=== PATIENT | male | born 2005 | race Caucasian/White ===

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

== ENCOUNTER 2025-03-12 06:26 | Emergency (ER) | payer MEDICAID, SELFPAY ==
[2025-03-12 06:29] VITALS: BP 127/58; PULSE 69; RESP 20; TEMP 36.3; O2SAT 100; BMI 19.8
[2025-03-12 06:38] VITALS: BP 127/58; PULSE 69; RESP 20; TEMP 36.3; O2SAT 100
--- NOTE | 2025-03-12 06:41 | PC.NURSE ---
pt reports upper right tooth pain x2 days Px increased tonight, pt took ibuprofen with no relief. denies fever, currently nauseas.
--- NOTE | 2025-03-12 06:57 | ED.GENADULT ---
HPI - General Adult General Chief complaint: Dental/Oral Stated complaint: Dental Pain Time Seen by Provider: 03/12/25 06:57 History of Present Illness ED Provider: Rufus KERN narrative: The patient is a 20-year-old male who presents for evaluation of left maxillary dental pain. He says he has had pain in a left upper molar for about 2 days. He says that he was seen at his regular dental office yesterday and had x-rays and that no specific finding was made and no treatment was initiated. He says that he has continued to have pain. He feels like the left side of his face is swollen. He says that he vomited 3 times this morning. He came to the emergency room. He says that cold water helps the pain but hot liquids exacerbate the pain. He has not had a fever. Related Data Previous Rx's ?Medication ?Instructions ?Recorded amoxicillin 875 mg-potassium 1 tab PO TID 7 days #21 tabs 06/28/23 clavulanate 125 mg tablet ibuprofen 400 mg tablet 400 mg PO TID PRN fever or pain 09/14/23 #20 tabs acetaminophen 500 mg capsule 1,000 mg (2 x 500 mg) PO Q8H PRN 03/12/25 fever or pain #14 caps amoxicillin 875 mg-potassium 1 tab PO BID #16 tabs 03/12/25 clavulanate 125 mg tablet ibuprofen 400 mg tablet 400 mg PO Q6H PRN pain #14 tabs 03/12/25 Allergies Allergy/AdvReac Type Severity Reaction Status Date / Time No Known Allergies Allergy Verified 03/12/25 06:30 Review of Systems Review of Systems: Yes all other systems are reviewed and are negative [facility] Social History Social History Smoked in Last 30 Days: No Use of substances other than those prescribed or required for medical reasons: No Advance Directives: No Advance Directives Information Provided: Yes Physical Exam ED Vital Signs: Vital Signs - 24 hr 03/12/25 06:29 03/12/25 06:38 03/12/25 07:36 Temperature 97.4 F 97.4 F 97.8 F Pulse Rate 69 69 69 Respiratory Rate 20 20 16 Blood Pressure 127/58 L 127/58 L 108/43 L Pulse Oximetry 100 100 100 Oxygen Delivery Method Room Air Room Air Room Air BMI result Body Mass Index 19.8 Const Other: The patient is awake and alert. He is a slim 20-year-old man who looks as though he is ordinarily in good health. He looks tired. He does not seem toxic or in distress otherwise. No obvious facial swelling. Orientation/consciousness: patient oriented x3 HENMT Other: No obvious facial swelling or asymmetry. There was no trismus. On examination he indicates that the tooth that is bothering him is tooth #14. The tooth is tender to tapping. There was no gingival swelling but there is some mild slight hyperemia to the mucosa of the roof of the vestibule just at the level of the tooth. The oral cavity is otherwise unremarkable and normal looking. Mucous membranes are normal and moist. Airway is clear. Eyes Other: Pupils are round equal, conjunctivae are clear, extraocular movements intact General: appearance normal, both eyes and all related structures Neck Other: I do not appreciate any cervical adenopathy. Specifically no left upper cervical adenopathy. The neck is supple and benign. Resp Effort & Inspection: normal respiratory effort Auscultation: clear to auscultation bilaterally Cardio Rate: regular rate Rhythm: regular rhythm Heart sounds: S1 normal heart sound present and S2 normal heart sound present Skin Other: The skin of the face is normal. I do not appreciate any redness or soft tissue swelling. Neuro General: patient oriented x3, moves all extremities, no focal motor deficits and CN's II-XI intact bilaterally Extrem Other: There is no calf swelling or tenderness. No asymmetry. No peripheral edema. Medications Administered Discontinued Medications Generic Name Dose Route Start Last Admin Trade Name Freq PRN Reason Stop Dose Admin Amoxicillin/Clavulanate Potassium 875 mg 03/12/25 07:06 03/12/25 07:31 Amoxicillin/Potassium Clav 875 Mg Tablet PO 03/12/25 07:07 875 mg ONCE ONE Administration Ketorolac Tromethamine 30 mg 03/12/25 07:06 03/12/25 07:23 Ketorolac Tromethamine 30 Mg/Ml Vial IM 03/12/25 07:07 30 mg ONCE ONE Administration Medical Decision Making Medical Decision Making [facility] Narrative: The patient seems to have fairly focal dental pain at a left maxillary molar, I think this is tooth 14. It is tender to tapping. There was no indication for any drainage procedure. I will start the patient on Augmentin. Lab Data Labs: Lab Results 03/12/25 Range/Units 06:50 COVID-19 (HOLLI) Negative (Negative) COVID-19 Clin Com See Note Influenza Type A (CYNTHIA) Negative (Negative) Influenza Type B (CYNTHIA) Negative (Negative) Influenza A & B Note See Note Discharge Plan Discharge Clinical Impression: Pain, dental Patient Disposition: Home, Self-Care Instructions: Toothache (ED) Additional Instructions: You has been started on a course of antibiotics which I hope will help with the your dental pain. Please plan on checking in with your dentist again and a couple of days. Continue to use ibuprofen and acetaminophen as needed for pain. I have sent prescriptions for these medications. Return to the emergency room if significantly worse. Prescriptions: New ibuprofen 400 mg tablet 400 mg PO Q6H PRN (Reason: pain) Qty: 14 0RF acetaminophen 500 mg capsule 1,000 mg PO Q8H PRN (Reason: fever or pain) Qty: 14 0RF amoxicillin-pot clavulanate 875-125 mg tablet 1 tab PO BID Qty: 16 0RF No Action ibuprofen 400 mg tablet 400 mg PO TID PRN (Reason: fever or pain) Qty: 20 0RF amoxicillin-pot clavulanate 875-125 mg tablet 1 tab PO TID 7 Days Qty: 21 0RF Discharge Date/Time: 03/12/25 07:37 Print Language: Bulgarian
[2025-03-12 07:21] LABS: COVID-19 Test Negative (Negative); IDNOW Serial# 58CA691E
[2025-03-12 07:22] LABS: IDNOW Serial# 55D5AD1C; Influenza B2 Negative (Negative)
[2025-03-12 07:36] VITALS: BP 108/43; PULSE 69; RESP 16; TEMP 36.6; O2SAT 100
== END 2025-03-12 07:37 | disposition home or self-care (01) ==
PROVIDERS: Emergency Provider Emergency Medicine
DX: K08.89 Other specified disorders of teeth and supporting structures (principal); R11.10 Vomiting, unspecified; Z03.818 Encounter for observation for suspected exposure to other biological agents ruled out
CPT/HCPCS: 87502; 87635; 96372; 99284; J1885

== ENCOUNTER 2025-03-12 12:50 | Emergency (ER) | payer MEDICAID, SELFPAY ==
--- NOTE | ~2025-03-12 | US_ITS ---
EXAMINATION: US ABDOMEN LIMITED CLINICAL INFORMATION: Elevated liver enzymes. COMPARISON: None available. TECHNIQUE: Real-time imaging of the right upper quadrant abdominal viscera. FINDINGS: PANCREAS: Visualized portions are unremarkable. Portions of the tail were not well demonstrated. LIVER: The liver is normal in size. The liver contour is normal. Parenchymal echogenicity is normal. No focal hepatic lesion. There is no intrahepatic biliary duct dilatation seen. The main portal vein is patent with a normal direction of flow. There is a continuous venous waveform. GALLBLADDER: The gallbladder is physiologically distended without evidence of stones, sludge, polyps, wall thickening or pericholecystic fluid. COMMON BILE DUCT: Normal in caliber measuring 0.3 cm in diameter. FREE FLUID: None. US/US abdomen limited IMPRESSION: Unremarkable right upper quadrant abdomen ultrasound. Electronically signed by: Jacek Zuleta MD 03/12/2025 05:21 PM [facility]
[2025-03-12 13:14] VITALS: BP 128/61; PULSE 75; RESP 18; TEMP 36.8; O2SAT 100; BMI 21.4
--- NOTE | 2025-03-12 13:26 | ED_ITS ---
HPI - General Adult General Chief complaint: Nausea/Vomiting/Diarrhea Stated complaint: seen earlier, vomiting , toothache Time Seen by Provider: 03/12/25 14:29 Source: patient Mode of arrival: ambulatory Limitations: no limitations History of Present Illness ED Provider: Po Mccabe HPI narrative: 20 yold male presents to the ED For recently seen here for dental pain presents to ED for vomiting and dental pain. Patient denies any swelling of the neck, drooling, change in voice, or any recent trauma. Patient denies any recent dental work. Patient did not yet take the antibiotic prescribed for dental pain.. Related Data Previous Rx's ?Medication ?Instructions ?Recorded amoxicillin 875 mg-potassium 1 tab PO TID 7 days #21 t abs 06/28/23 clavulanate 125 mg tablet ibuprofen 400 mg tablet 400 mg PO TID PRN fever or p ain 09/14/23 #20 tabs acetaminophen 500 mg capsule 1,000 mg (2 x 500 mg) PO Q8H PRN 03/12/25 fever or pain #14 caps amoxicillin 875 mg-potassium 1 tab PO BID #16 tabs clavulanate 125 mg tablet ibuprofen 400 mg tablet 400 mg PO Q6H PRN pain #14 t abs 03/12/25 oxycodone 5 mg tablet 5 mg PO Q8H PRN pain #9 tabs 03/12/25 Allergies Allergy/AdvReac Type Severity Reaction Status Date / Time No Known Allergies Allergy Verified 03/12/25 13:16 Review of Systems 2 Review of Systems: Dental pain Yes all other systems are reviewed and are negative Physical Exam ED Vital Signs: Vital Signs - 24 hr 03/12/25 13:14 03/12/25 18:16 Temperature 98.3 F 98.3 F Pulse Rate 75 84 Respiratory Rate 18 16 Blood Pressure 128/61 116/50 L Pulse Oximetry 100 99 Oxygen Delivery Method Room Air Room Air BMI result Body Mass Index 21.4 Const General: cooperative, healthy appearing, comfortable, no acute distress, well developed, alert and awake Orientation/consciousness: patient oriented x3 HENMT Head: Yes normal to inspection, Yes No palpable skull fracture present, Yes normocephalic and Yes atraumatic Ears: hearing grossly normal bilaterally, external ears normal, TM's normal bilaterally, TM normal on the right, TM normal on the left, EAC's normal, mastoids normal and no periauricular adenopathy Throat: Yes posterior oropharynx normal, Yes tonsils normal and Yes uvula midline Eyes General: appearance normal, both eyes and all related structures Neck Neck: Yes normal visual inspection, Yes full ROM, Yes no lymphadenopathy, Yes no meningeal signs, Yes trachea midline, Yes supple, No anterior neck swelling and No tender Chest Chest palpation & inspection: normal inspection of the chest and normal palpation of entire chest wall Resp Effort & Inspection: normal respiratory effort and able to speak in complete sentences Auscultation: clear to auscultation bilaterally Cardio Jugular venous distension: no JVD Heart sounds: S1 normal heart sound present and S2 normal heart sound present GI Inspection: Yes normal to inspection Palpation (GI): Soft to palpation, not firm, nontender, no guarding and not rigid General: Yes no CVA tenderness Back/Spine/Pelvis Back: no CVA tenderness and No back tenderness Skin General skin exam: no rashes or lesions noted, elasticity normal and turgor normal Neuro General: patient oriented x3, gait normal, tone normal, moves all extremities, Normal light touch and pain sensation, no meningeal signs, no focal motor deficits, CN's II-XI intact bilaterally and normal sensation to monofilament Extrem General: Yes normal to inspection, Yes full ROM and Yes capillary refill normal Psych Appearance: grossly normal, well kempt and not disheveled Course Course Course Narrative: RME: 20 yold male presents to the ED for vomitting with and dental pain. Patient sen here earlier in the day and prescribed antbiotics. patient states need something for the vomiting. labs ordered. Medications Administered Discontinued Medications Generic Name Dose Route Start Last Admin Trade Name Charan PRN Reason Stop Dose Admin Sodium Chloride 1,000 mls @ 999 mls/hr 03/12/25 16:13 03/12/25 18:28 Ns IV 03/12/25 17:13 Infused .Q1H1M STA Infusion Ketorolac Tromethamine 30 mg 03/12/25 15:36 03/12/25 15:52 Ketorolac Tromethamine 30 Mg/Ml Vial IM 03/12/25 15:37 30 mg ONCE ONE Administration Ondansetron HCl 4 mg 03/12/25 14:25 03/12/25 14:31 Ondansetron Odt 4 Mg Tab.Rapdis TRANSLINGU 03/12/25 14:26 4 mg ONCE ONE Administration Oxycodone HCl 5 mg 03/12/25 15:46 03/12/25 15:52 Oxycodone Hcl Immed Release 5 Mg Tablet PO 03/12/25 15:47 5 mg ONCE ONE Administration Medical Decision Making Medical Decision Making [facility] Narrative: [age] year male presents to ED for dental pain and vomiting. Patient denies any abdominal pain, chest pain or shortness of breath. Patient denies any drooling or change in voice. We will order labs and UA. Zofran p.o. challenge ordered. 4:08pm: Patient's passed p.o. challenge. Patient given Toradol and Percocet. Patient's labs show elevated liver enzymes. That is no previous labs to compare to. I want to evaluate patient's and girlfriend states patient has been taking high doses of Tylenol every 3-4 hours for the past 3 days due to dental pain. Would add Tylenol level, hepatitis panel, an ultrasound 7:49PM; repeat liver enzymes improved. Tylenol level negative. Salicylate level negative. Patient is feeling better. Lab results reviewed with Dr. Hooper who states no need to get poison control involved and patient can be discharged. History clarifies with Patient who states he onlyl took four 500 mg Tylenol with in the past 36 hours. Patient states only took three 200 Motrin pills yesterday. Unlikely patient is having acetaminophen toxicity since amount of acetaminophen ingested is probably not very great (this was clarified on further discussion with the patient), the acetaminophen level is undetectable, and transaminases are falling. Abdomen is soft benign nontender. Patient's care being copy of lab results informed to follow up with primary care provider. not supecting pertisonsillar abscess, zak angina, retropharyngeal abscess, cirrohosis, liver failure, or any other life threatening etiology. Differential Diagnosis Differential Diagnoses: The differential diagnosis associated with the presentation includes (Hepatitis, cholecystitis, Tylenol toxicity dental pain, Zak's angina) Admission/Observation Consideration of admission/observation: Escalation of care including admission/observation considered Lab Data [facility] Lab Attestation statement: I reviewed the patient's lab results. 03/12/25 13:36 03/12/25 13:36 Labs: Lab Results 03/12/25 03/12/25 03/12/25 Range/Units 13:36 17:12 19:02 WBC 11.8 H (4.8-10.8) X10*3/uL RBC 4.91 (4.60-5.80) X10*6/uL Hgb 14.9 (14.0-18.0) g/dl Hct 42.9 (42.0-52.0) % MCV 87.4 (80.0-98.0) fL MCH 30.3 (27.0-33.0) pg MCHC 34.7 (31.0-36.0) g/dl RDW 13.7 (11.0-16.0) % Plt Count 230 (160-400) X10*3/uL MPV 10.0 (9.4-12.4) fL Immature Gran % (Auto) 0.5 H (0.0-0.4) % Neut % (Auto) 74.1 H (45-73) % Lymph % (Auto) 12.4 L (20-40) % Mifflin % (Auto) 12.5 H (2-11) % Eos % (Auto) 0.2 (0-4) % Baso % (Auto) 0.3 (0-2) % Lymph # (Auto) 1.5 (1.2-4.9) X10*3/uL Mifflin # (Auto) 1.5 H (0.1-1.2) X10*3/uL Eos # (Auto) 0.0 (0.0-0.4) X10*3/uL Baso # (Auto) 0.0 (0.0-0.2) X10*3/uL Abs Immat Gran (auto) 0.06 H (0.00-0.03) X10*3/uL Absolute Neuts (auto) 8.8 H (2.0-8.3) x10*3/uL Absolute Nucleated RBC 0.000 (0.0-0.012) X10*3/uL Nucleated RBC % (auto) 0.0 (0.0-0.2) /100WBC Sodium 140 (135-145) mmol/L Potassium 4.4 (3.3-5.1) mmol/L Chloride 105 (96-108) mmol/L Carbon Dioxide 26 (22-29) mmol/L Anion Gap 13 (12-20) BUN 7 L (9-16) mg/dL Creatinine 0.81 (0.5-1.4) mg/dL Estim Creat Clear Calc 130.3 Estimated GFR > 60 Random Glucose 103 (60-115) mg/dL Calcium 9.9 (8.4-10.2) mg/dL Magnesium 2.1 (1.6-2.6) mg/dL Total Bilirubin 0.7 0.7 (0.0-1.0) mg/dL Direct Bilirubin 0.2 (0.0-0.5) mg/dL AST 239 H 222 H (5-37) U/L ALT 313 H 294 H (0-40) U/L Alkaline Phosphatase 75 75 (39-117) U/L Total Protein 8.1 H 7.5 (6.5-8.0) g/dL Albumin 5.1 H 4.8 (3.5-5.0) g/dL Urine Color Yellow Urine Appearance Clear Urine pH 6.5 (5.0-9.0) Ur Specific Petal 1.015 (1.005-1.025) Urine Protein 30 (1+) H (Neg-Trace) mg/dL Urine Glucose (UA) Negative (Negative) mg/dL Urine Ketones 80 (Negative) mg/dL Urine Blood Negative (Negative) Urine Nitrite Negative (Negative) Ur Leukocyte Esterase Trace H (Negative) Urine RBC 0-2 (0-2) /HPF Urine WBC 0-5 (0-5) /HPF Ur Squamous Epith Cells 0-2 (0-2) /HPF Urine Bacteria None Seen (None Seen) Hyaline Casts 0-2 (0-2) /LPF Salicylates < 5.0 L (15-30) mg/dL Urine Opiates Screen Not Detected (Not Detect) Ur Buprenorphine Scrn Not Detected (Not Detect) ng/mL Ur Oxycodone Screen Not Detected (Not Detect) ng/mL Urine Methadone Screen Not Detected (Not Detect) ng/mL Urine Fentanyl Screen Not Detected (Not Detect) Acetaminophen < 3 (<30) mcg/mL Ur Barbiturates Screen Not Detected (Not Detect) Ur Phencyclidine Scrn Not Detected (Not Detect) Ur Amphetamines Screen Not Detected (Not Detect) U Benzodiazepines Scrn Not Detected (Not Detect) Urine Cocaine Screen Not Detected (Not Detect) U Marijuana (THC) Screen POSITIVE H (Not Detect) Ethyl Alcohol < 10 mg/dL Hepatitis A IgM Ab Nonreactive (Nonreactive) Hep Bs Antigen Negative (Negative) Hep Bs Antibody GRAYZONE (Nonreactive) Hep B Core Total Ab Nonreactive (Nonreactive) Hepatitis C Ab (EIA) Nonreactive (Nonreactive) Independent Historian Clinical information obtained from an independent historian. History obtained from or confirmed by: Other (patient) Discharge Plan Discharge Clinical Impression: Pain, dental, Elevated liver enzymes Patient Disposition: Home, Self-Care Instructions: Toothache (ED), Transaminitis (ED) Additional Instructions: Recommend follow up with primary care provider and dental clinic. Your liver enzymes were elevated. Ultrasound came back negative for gallstones. Blood work came back negative for Tylenol poisoning. If hepatitis panel was positive you will be called back with results. Return to the ED immediately for any swelling of the jaw/neck, drooling, change in voice, chest pain, shortness of breath, worsening dental pain, abdominal swelling, leg swelling, rash, altered mental status, or any other concerning symptoms. Name: Pierre Barrera Age/Sex: 20/M : 2005 Unit#: [id number] Attend Dr: David Hooper MD Re03/12/25 Status: REG ER Location: [facility] isch: SPEC : [id number] MACEY: 03/12/25 STATUS: COMP REQ : [id number] RECD: 03/12/[address]: Po Mccabe COMP: 03/12/25 ENTERED: 03/12/25 [facility] DR: Physician,Unknown ORDERED: CBC Auto Diff Test Result Flag Reference WBC 11.8 H 4.8-10.8 X10*3/uL RBC 4.91 4.60-5.80 X10*6/uL HGB 14.9 14.0-18.0 g/dl HCT 42.9 42.0-52.0 % MCV 87.4 80.0-98.0 fL MCH 30.3 27.0-33.0 pg MCHC 34.7 31.0-36.0 g/dl RDW 13.7 11.0-16.0 % PLT 230 160-400 X10*3/uL MPV 10.0 9.4-12.4 fL Neut Pct Auto 74.1 H 45-73 % ImGran Pct Auto 0.5 H 0.0-0.4 % Lymp Pct Auto 12.4 L 20-40 % Mifflin Pct Auto 12.5 H 2-11 % Eos Pct Auto 0.2 0-4 % Baso Pct Auto 0.3 0-2 % NRBC Pct Auto 0.0 0.0-0.2 /100WBC ANC Neut Abs # 8.8 H 2.0-8.3 x10*3/uL ImGran Abs Auto 0.06 H 0.00-0.03 X10*3/uL Lymph Abs Auto 1.5 1.2-4.9 X10*3/uL Mifflin Abs Auto 1.5 H 0.1-1.2 X10*3/uL Eos Abs Auto 0.0 0.0-0.4 X10*3/uL Baso Abs Auto 0.0 0.0-0.2 X10*3/uL NRBC Abs Auto 0.000 0.0-0.012 X10*3/uL END OF REPORT Name: Pierre Barrera Age/Sex: 20/M : 2005 Unit#: [id number] Attend Dr: David Hooper MD Re03/12/25 Status: REG ER Location: [facility] isch: SPEC : [id number] MACEY: 03/12/25 STATUS: COMP REQ : [id number] RECD: 03/12/[address]: Po Mccabe COMP: 03/12/25 ENTERED: 03/12/[address]: Physician,Unknown ORDERED: CMP, MG Test Result Flag Reference Sodium 140 135-145 mmol/L Potassium 4.4 3.3-5.1 mmol/L CL 105 96-108 mmol/L CO2 26 22-29 mmol/L Gap 13 12-20 BUN 7 L 9-16 mg/dL Creat 0.81 0.5-1.4 mg/dL Estimated CrCl 130.3 eGFR (calculated from the MDRD study equation) and eCrCl (calculated from the Cockcroft-Gault equation) are based on different parameters and may not yield comparable results. If eCrCl result is absurd, please check patient's height/weight. eGFR > 60 Chronic Kidney Disease: Estimated GFR < 60 mL/min/1.73m2 Severe Kidney Disease: Estimated GFR < 15 mL/min/1.73m2 Glucose, Random 103 60-115 mg/dL CA 9.9 8.4-10.2 mg/dL Magnesium 2.1 1.6-2.6 mg/dL Total Bili 0.7 0.0-1.0 mg/dL AST (GOT) 239 H 5-37 U/L ALT (GPT) 313 H 0-40 U/L Protein, Total 8.1 H 6.5-8.0 g/dL Alb 5.1 H 3.5-5.0 g/dL Alk Phos 75 39-117 U/L END OF REPORT Name: Pierre Barrera Age/Sex: 20/M : 2005 Unit#: [id number] Attend Dr: David Hooper MD Re03/12/25 Status: REG ER Location: [facility] isch: SPEC : [id number] MACEY: 03/12/25 STATUS: COMP REQ : [id number] RECD: 03/12/[address]: David Hooper MD COMP: 03/12/25 ENTERED: 03/12/[address]: Physician,Unknown ORDERED: Liver Panel Test Result Flag Reference Total Bili 0.7 0.0-1.0 mg/dL Direct Bili 0.2 0.0-0.5 mg/dL AST (GOT) 222 H 5-37 U/L ALT (GPT) 294 H 0-40 U/L Protein, Total 7.5 6.5-8.0 g/dL Alb 4.8 3.5-5.0 g/dL Alk Phos 75 39-117 U/L Ordering Physician: Po Mccabe Date of Service: 03/12/25 Procedure(s): US abdomen limited Accession Number(s): [id number] cc: Po Mccabe; Physician,Unknown ~ Reason for Exam: CHolecysitis? elevated liver enzymes EXAMINATION: US ABDOMEN LIMITED CLINICAL INFORMATION: Elevated liver enzymes. COMPARISON: None available. TECHNIQUE: Real-time imaging of the right upper quadrant abdominal viscera. FINDINGS: PANCREAS: Visualized portions are unremarkable. Portions of the tail were not well demonstrated. LIVER: The liver is normal in size. The liver contour is normal. Parenchymal echogenicity is normal. No focal hepatic lesion. There is no intrahepatic biliary duct dilatation seen. The main portal vein is patent with a normal direction of flow. There is a continuous venous waveform. GALLBLADDER: The gallbladder is physiologically distended without evidence of stones, sludge, polyps, wall thickening or pericholecystic fluid. COMMON BILE DUCT: Normal in caliber measuring 0.3 cm in diameter. FREE FLUID: None. US/US abdomen limited IMPRESSION: Unremarkable right upper quadrant abdomen ultrasound. Electronically signed by: Jacek Zuleta MD 03/12/2025 05:21 PM [facility] Dictated By: Jacek Zuleta MD Signed By: <Electronically signed by Jacek Zuleta MD in OV> 03/12/25 1721 DD/ 1649 TD/TT: 03/12/25 1658 Piper Helper: [facility] [address] [place] [id number] Livestock Nutritionist: Joseph Bates M.D. Specimen Inquiry Name: Savagereza AlexPierre Y Age/Sex: 20/M : 2005 Unit#: [id number] Attend Dr: David Hooper MD Re03/12/25 Status: REG ER Location: [facility] isch: SPEC : [id number] MACEY: 03/12/25 STATUS: COMP REQ : [id number] RECD: 03/12/[address]: Po Mccabe COMP: 03/12/25 ENTERED: 03/12/[address]: Physician,Unknown ORDERED: Salic, Acetamin Test Result Flag Reference Salicylate < 5.0 L 15-30 mg/dL Acetaminophen < 3 <30 mcg/mL Prescriptions: New oxycodone 5 mg tablet 5 mg PO Q8H PRN (Reason: pain) Qty: 9 0RF Rx Instructions: Partial Fill upon patient request. No Action ibuprofen 400 mg tablet 400 mg PO TID PRN (Reason: fever or pain) Qty: 20 0RF ibuprofen 400 mg tablet 400 mg PO Q6H PRN (Reason: pain) Qty: 14 0RF acetaminophen 500 mg capsule 1,000 mg PO Q8H PRN (Reason: fever or pain) Qty: 14 0RF amoxicillin-pot clavulanate 875-125 mg tablet 1 tab PO BID Qty: 16 0RF amoxicillin-pot clavulanate 875-125 mg tablet 1 tab PO TID 7 Days Qty: 21 0RF Referrals: [facility] [Provider Group, Gastroenterology] - 2 days Referral Note: elevated liver enzymes Clinical Impression: Elevated liver enzymes [facility] [Provider Group, Internal Medicine] - 2 days Referral Note: That is to pain, transaminitis Clinical Impression: Elevated liver enzymes; Pain, dental Stand Alone Forms: Work/School Release Interventions: ED Discharge Assessment Last Done: 03/12/25 20:09 Discharge Date/Time: 03/12/25 20:10 Print Language: Sudanese
[2025-03-12 13:40] LABS: MANUAL DIFF FLAG NO
[2025-03-12 13:42] LABS: Hematocrit 42.9 % (42.0-52.0); Hemoglobin 14.9 g/dl (14.0-18.0); Imm Gran Abs Auto 0.06 X10*3/uL (0.00-0.03); Imm Gran Pct Auto 0.5 % (0.0-0.4); Lymphocytes Absolute Auto 1.5 X10*3/uL (1.2-4.9); Mean Corpuscular HGB Conc 34.7 g/dl (31.0-36.0); Mean Corpuscular Hemoglobin 30.3 pg (27.0-33.0); Mean Corpuscular Volume 87.4 fL (80.0-98.0); NRBC Abs Auto 0.000 X10*3/uL (0.0-0.012); NRBC Pct Auto 0.0 /100WBC (0.0-0.2); Platelet Count 230 X10*3/uL (160-400); Red Blood Count 4.91 X10*6/uL (4.60-5.80); White Blood Count 11.8 X10*3/uL (4.8-10.8)
[2025-03-12 13:44] LABS: Appearance Urine Clear; Glucose Urine UA Negative (Negative); PH 6.5 (5.0-9.0); Specific Gravity - Urine 1.015 (1.005-1.025); UMIC TRIGGER UACC YES
[2025-03-12 13:56] LABS: Alanine Aminotransferase 313 U/L (0-40); Albumin Level 5.1 g/dL (3.5-5.0); Alkaline Phosphatase 75 U/L (39-117); Anion Gap 13 (12-20); Aspartate Amino Transferase 239 U/L (5-37); Blood Urea Nitrogen 7 mg/dL (9-16); Calcium 9.9 mg/dL (8.4-10.2); Carbon Dioxide 26 mmol/L (22-29); Chloride 105 mmol/L (96-108); Creatinine Clr Calc Pharmacy 130.3; Estimated Glomerular Filt Rate > 60; Potassium 4.4 mmol/L (3.3-5.1); Sodium 140 mmol/L (135-145); Total Protein 8.1 g/dL (6.5-8.0)
--- NOTE | 2025-03-12 14:33 | PC.NURSE ---
Patient presenting to ED with nausea and vomiting after being discharged earlier this morning for dental pain. Patient states he has been unable to eat due to dental pain and taking pain medications and antibiotics. Zofran given.
[2025-03-12 15:21] LABS: Cannabinoid Screen Urine POSITIVE (Not Detect)
[2025-03-12] MEDS: oxyCODONE HCl Immed Release 5 MG TABLET PO (15:52)
[2025-03-12 17:38] LABS: Acetaminophen LAB < 3 mcg/mL (<30); Salicylate < 5.0 mg/dL (15-30)
[2025-03-12 18:16] VITALS: BP 116/50; PULSE 84; RESP 16; TEMP 36.8; O2SAT 99
--- NOTE | 2025-03-12 18:19 | ECG_ITS ---
Test Reason : ELEVATED LIVER ENZY Blood Pressure : */* mmHG Vent. Rate : 79 BPM Atrial Rate : 79 BPM P-R Int : 130 ms QRS Dur : 84 ms QT Int : 384 ms P-R-T Axes : 67 -23 48 degrees QTcB Int : 440 ms Normal sinus rhythm with sinus arrhythmia Normal ECG When compared with ECG of 02-Aug-2021 13:39, No significant change was found Referred By: Po Mccabe Electronically Signed By: DIAZ OVIEDO
[2025-03-12 18:40] LABS: Magnesium 2.1 mg/dL (1.6-2.6)
[2025-03-12 19:21] LABS: Alanine Aminotransferase 294 U/L (0-40); Albumin Level 4.8 g/dL (3.5-5.0); Alkaline Phosphatase 75 U/L (39-117); Aspartate Amino Transferase 222 U/L (5-37); Total Protein 7.5 g/dL (6.5-8.0)
[2025-03-12 20:09] VITALS: BP 116/50; PULSE 84; RESP 16; TEMP 36.8; O2SAT 99
[2025-03-13 08:08] LABS: HBS Num1 10.83 mIU/mL (0-7.99); HBc Num1 0.13 S/CO (0.00-0.79); HBsAGNum1 0.43 S/CO (0.00-0.99); Hepatitis A Antibody IgM 0.27 Index (0-0.79); Hepatitis B Surface Antigen Negative (Negative); ~HepC Num1 0.11 S/CO (0.00-0.79); ~Hepatitis A Antibody IgM Nonreactive (Nonreactive); ~Hepatitis C Antibody Nonreactive (Nonreactive)
[2025-03-13 10:26] LABS: HBS Num2 11.38 mIU/mL (0-7.99); HBS Num3 11.32 mIU/mL (0-7.99); ~Hepatitis B Surface Antibody GRAYZONE (Nonreactive)
== END 2025-03-12 20:10 | disposition home or self-care (01) ==
PROVIDERS: Physician Assistant; Emergency Provider Emergency Medicine
DX: K08.89 Other specified disorders of teeth and supporting structures (principal); R11.10 Vomiting, unspecified; R22.1 Localized swelling, mass and lump, neck; R74.01 Elevation of levels of liver transaminase levels
CPT/HCPCS: 36415; 76705; 80053; 80076; 80143; 80179; 80307; 81001; 83735; 85025; 86704; 86706; 86709; 86803; 87340; 93005; 96360; 96372; 99284; 99285; J1885

== ENCOUNTER → 2025-03-12 16:09 | Outpatient (BNV) | payer MEDICAID, SELFPAY | PROVIDERS: Emergency Provider Emergency Medicine; Visit Provider Radiology Diagnostic Radiology | DX: R74.01 Elevation of levels of liver transaminase levels (principal) | CPT/HCPCS: 76705 ==

== ENCOUNTER → 2025-03-12 18:19 | Outpatient (BNV) | payer MEDICAID, SELFPAY | PROVIDERS: Emergency Provider Emergency Medicine; Visit Provider Internal Medicine | DX: R94.5 Abnormal results of liver function studies (principal) | CPT/HCPCS: 93010 ==

== ENCOUNTER 2025-04-02 14:16 | Emergency (ER) | payer MEDICAID, SELFPAY ==
--- NOTE | ~2025-04-02 | XR_ITS ---
EXAMINATION: XR HAND, RIGHT CLINICAL INFORMATION: pain, injury, concern for FB COMPARISON: None available. TECHNIQUE: PA, lateral, and oblique views of the right hand. FINDINGS: No fracture, dislocation, or suspicious bone lesion. Normal bone mineralization. Normal alignment. Joint spaces are preserved. No significant arthropathy. No radiopaque foreign body is evident. Soft tissues appear normal. XR/XR hand RT min 3V IMPRESSION: No acute bony or soft tissue abnormalities of the right hand. There is no radiopaque foreign body. Electronically signed by: Alejandro Piña MD 04/02/2025 03:20 PM [facility]
[2025-04-02 14:28] VITALS: BP 114/64; PULSE 96; RESP 18; TEMP 36.6; O2SAT 100; BMI 22.4
--- NOTE | 2025-04-02 14:33 | ED_ITS ---
HPI - Wound/Laceration General Chief Complaint: Wound/Laceration Stated Complaint: Injury Time Seen by Provider: 04/02/25 17:04 History of Present Illness ED Provider: Rufus EKRN narrative: The patient is a 20-year-old male who punched a mirror with his right hand earlier today at approximately 14:00. He sustained several skin injuries to the dorsum of the hand including a laceration on the dorsum of the right thumb near the IP joint. He is not able to extend the thumb at the IP joint. He has normal sensation in all the fingers. He has no other injuries. He admits that he was feeling upset earlier but he no longer feels like he is going to do anything to harm himself or anyone else. He does not feel that he has any foreign bodies in the wounds. Related Data Previous Rx's ?Medication ?Instructions ?Recorded amoxicillin 875 mg-potassium 1 tab PO TID 7 days #21 t abs 06/28/23 clavulanate 125 mg tablet ibuprofen 400 mg tablet 400 mg PO TID PRN fever or p ain 09/14/23 #20 tabs acetaminophen 500 mg capsule 1,000 mg (2 x 500 mg) PO Q8H PRN 03/12/25 fever or pain #14 caps amoxicillin 875 mg-potassium 1 tab PO BID #16 tabs clavulanate 125 mg tablet ibuprofen 400 mg tablet 400 mg PO Q6H PRN pain #14 t abs 03/12/25 oxycodone 5 mg tablet 5 mg PO Q8H PRN pain #9 tabs 03/12/25 acetaminophen 500 mg capsule 1,000 mg (2 x 500 mg) PO Q8H PRN 04/02/25 fever or pain #14 caps cephalexin 500 mg capsule 500 mg PO QID 5 days #20 cap s 04/02/25 Allergies Allergy/AdvReac Type Severity Reaction Status Date / Time No Known Allergies Allergy Verified 04/02/25 14:30 Review of Systems Review of Systems: Yes all other systems are reviewed and are negative PMFSH Social History Social History Advance Directives: No Advance Directives Information Provided: No Physical Exam Vital Signs: Vital Signs: Last Vital Signs Temp 97.9 F 04/02/25 19:02 Pulse 96 04/02/25 19:02 Resp 18 04/02/25 19:02 BP 114/64 04/02/25 19:02 Pulse Ox 100 04/02/25 19:02 O2 Del Method Room Air 04/02/25 14:28 BMI result Body Mass Index 22.4 Const: Other: The patient has the appearance of an ordinarily healthy 20-year-old male with wounds to the dorsum of the right hand including a laceration to the dorsum of the right thumb at the IP joint. The thumb is flexed at the IP joint and he is obviously unable to extend the thumb. Orientation/consciousness: patient oriented x3 HEENT: Other: The face is symmetrical. ?Mucous membranes moist. Eyes: Other: Pupils are round equal, conjunctivae are clear, extraocular movements [id number] Neck: Neck: Yes normal visual inspection and Yes full ROM Resp: Effort & Inspection: normal respiratory effort Skin: Other: The patient has a 2 cm laceration across the dorsum of the right thumb at the IP joint. He has a 1.5 cm laceration across the dorsum of the PIP joint of the right middle finger. He has a 1 cm laceration on the dorsum of the right middle finger just distal to the PIP. He has a scattering of additional smaller skin abrasions to the dorsum of the hand and fingers as well. Neuro: Other: The patient has intact sensation in the fingertips of the right hand. He is unable to extend the thumb at the IP joint where there is a laceration. He is otherwise neurologically intact. General: patient oriented x3, tone normal, moves all extremities, no focal motor deficits and CN's II-XI intact bilaterally Extrem: Other: The patient has multiple skin injuries to the dorsum of the right hand. The largest of these is overlying the IP joint of the thumb. The thumb is being held flexed. The patient is unable to extend the thumb and this is suggestive of a laceration of the extensor tendon mechanism of the thumb. The patient has 2 lacerations on the dorsum of the middle finger, the larger of these to his over the PIP joint. The 2nd laceration is just distal to the 1st laceration. The larger laceration is 1.5 cm, the 2nd laceration is 1 cm. The patient has normal extensor function of the middle finger. The patient has multiple smaller skin wounds to other portions of the dorsum of the hand. These are all abrasions. Course Course Course Narrative: This is an RME: Additional HPI, ROS, PE not included below will be deferred to primary provider. RME assessment and note performed by: Little Gary PA-C This is a 67-male who presents to the [facility] concerns of laceration to his right thumb. Punched mirror and lacerated his right thumb, unable to move thumb. Plan: Xrays, wound repair Orthopedic team consulted, recommended washing out well, loosely approximating the wound edges, splinting, and following up with them on an outpatient basis. Medications Administered Discontinued Medications Generic Name Dose Route Start Last Admin Trade Name Freq PRN Reason Stop Dose Admin Bacitracin 2 appl 04/02/25 17:46 04/02/25 18:11 Bacitracin Oint 0.9 Gm Packet TOPICAL 04/02/25 17:47 2 appl ONCE ONE Administration Protocol Cephalexin HCl 1,000 mg 04/02/25 17:13 04/02/25 18:12 Cephalexin 500 Mg Capsule PO 04/02/25 17:14 1,000 mg ONCE ONE Administration Diphtheria/Tetanus/Acell Pertussis 0.5 ml 04/02/25 18:50 04/02/25 18:55 Diphth,Pertus(Acell),Tet Adult 0.5 Ml Syringe IM 04/02/25 18:51 0.5 ml .ONCE ONE Administration Lidocaine HCl 10 ml 04/02/25 17:12 04/02/25 18:20 Lidocaine Hcl 1 % Mpf 5 Ml Vial INFILTRATI 04/02/25 17:13 10 ml ONCE ONE Administration Medical Decision Making Medical Decision Making [facility] Narrative: The patient is a 20-year-old male who punched a mere and injured his hand. His most significant injury is a laceration to the right thumb. The laceration is over the IP joint and the patient seems to have no ability to extend the distal phalanx of the thumb at the IP joint. Clinically he has a complete disruption of the extensor tendon mechanism. He has 2 lacerations on the dorsum of the middle finger but has no signs of a tendon injury. He has sensation intact throughout. Orthopedics has been contacted by the physician web assistant at triage and discussion of the extensor tendon injury of the thumb occurred. Recommendation from orthopedics was to close the skin and discharge the patient to follow up with the Orthopedics tomorrow morning. When I saw the patient he had already received a message from the orthopedic office for a 09:45 appointment tomorrow. I then proceeded to close the wounds using standard wound closure technique including copious irrigation. The thumb wound was closed with 3 simple interru pted stitches and the 2 wounds on the dorsum of the middle finger were closed with 2 stitches and 1 stitch respectively. The thumb wound was splinted with the finger in extension. The patient was updated on tetanus. The patient was placed on cephalexin prophylactically. The patient was advised to keep the hand elevated. He should keep this dressing intact until following up tomorrow morning with the orthopedic office as currently scheduled. Procedures Laceration Laceration 1: Site: hand (Dorsum of right thumb over IP joint) Side (If applicable): right Size (cm): 2.5 Description: linear Depth: involves tendon Local Anesthetic: lidocaine 1% Amount of anesthesia used (mL): 4 Pre-repair: wound explored and irrigated extensively Skin layer closed with: nylon Size (cm): 4-0 Number of sutures: 3 Technique: simple, interrupted Laceration 2: Site: hand (Dorsum of right hand over PIP joint) Side (If applicable): right Size (cm): 1.5 Description: linear Depth: simple, single layer Local Anesthetic: lidocaine 1% Amount of anesthesia used (mL): 3 Pre-repair: wound explored and irrigated extensively Skin layer closed with: nylon Size (cm): 5-0 Number of sutures: 2 Technique: simple, interrupted Laceration 3: Site: hand (Dorsum of right hand just distal to fold of IP joint) Side (If applicable): right Size (cm): 1 Description: linear Depth: simple, single layer Local Anesthetic: lidocaine 1% Amount of anesthesia used (mL): 1 Pre-repair: wound explored and irrigated extensively Skin layer closed with: nylon Size (cm): 5-0 Number of sutures: 1 Technique: simple, interrupted Discharge Plan Discharge Clinical Impression: Laceration of extensor tendon of right thumb at hand level, Laceration of right thumb, Laceration of right middle finger Patient Disposition: Home, Self-Care Instructions: Laceration (ED) Additional Instructions: Keep your hand elevated tonight. Keep the dressing intact. Please keep the appointment with the orthopedic office tomorrow. You have a cut not only 3 your skin but also through the tendon that let us you straighten your right thumb. This will need to be surgically repaired. Therefore you must keep this appointment tomorrow. I have sent a prescription for antibiotics to the [facility] pharmacy. Please take this about every 6 hours. There is also a prescription for acetaminophen (Tylenol) that you may use as needed for pain. The stitches in your middle finger should come out in about 10 days. The dressing may be changed 1 to 2 times a day. Return to the emergency room at any time if any significant complications arise. Prescriptions: New cephalexin 500 mg capsule 500 mg PO QID 5 Days Qty: 20 0RF acetaminophen 500 mg capsule 1,000 mg PO Q8H PRN (Reason: fever or pain) Qty: 14 0RF No Action ibuprofen 400 mg tablet 400 mg PO TID PRN (Reason: fever or pain) Qty: 20 0RF ibuprofen 400 mg tablet 400 mg PO Q6H PRN (Reason: pain) Qty: 14 0RF acetaminophen 500 mg capsule 1,000 mg PO Q8H PRN (Reason: fever or pain) Qty: 14 0RF amoxicillin-pot clavulanate 875-125 mg tablet 1 tab PO BID Qty: 16 0RF oxycodone 5 mg tablet 5 mg PO Q8H PRN (Reason: pain) Qty: 9 0RF Rx Instructions: Partial Fill upon patient request. amoxicillin-pot clavulanate 875-125 mg tablet 1 tab PO TID 7 Days Qty: 21 0RF Referrals: [facility] [facility] [Provider Group] Interventions: ED Discharge Assessment Last Done: 04/02/25 19:02 Discharge Date/Time: 04/02/25 19:02 Print Language: Irish
--- NOTE | 2025-04-02 17:31 | PC.NURSE ---
Patient presented to ED from home with laceration right thumb due to punching mirror. Provider at bedside suturing lac.
[2025-04-02] MEDS: Lidocaine HCl 1 % MPF 5 ML VIAL 10 ML INFILTRATI (18:20)
[2025-04-02] MEDS: Diphth,Pertus(ACell),Tet Adult 0.5 ML SYRINGE IM (18:55)
[2025-04-02 19:02] VITALS: BP 114/64; PULSE 96; RESP 18; TEMP 36.6; O2SAT 100
== END 2025-04-02 19:02 | disposition home or self-care (01) ==
PROVIDERS: Emergency Provider Emergency Medicine
DX: S66.221A Laceration of extensor muscle, fascia and tendon of right thumb at wrist and hand level, initial encounter (principal); S61.212A Laceration without foreign body of right middle finger without damage to nail, initial encounter; S60.511A Abrasion of right hand, initial encounter; W25.XXXA Contact with sharp glass, initial encounter; Y93.9 Activity, unspecified; Y92.9 Unspecified place or not applicable; Y99.8 Other external cause status; Z23 Encounter for immunization
CPT/HCPCS: 12002; 73130; 90471; 90715; 99282; 99284; J2003

== ENCOUNTER → 2025-04-02 14:29 | Outpatient (BNV) | payer MEDICAID, SELFPAY | PROVIDERS: Visit Provider Radiology Diagnostic Radiology | DX: M79.641 Pain in right hand (principal) | CPT/HCPCS: 73130 ==

== ENCOUNTER 2025-04-03 09:49 | Outpatient (AMB) | payer MEDICAID, SELFPAY ==
[2025-04-03 09:51] VITALS: BMI 22.3
--- NOTE | 2025-04-03 09:51 | MHC.OFFVIS ---
Vital Signs 04/03/25 09:51 Height 5 ft 6 in Weight 138 lb BMI 22.3 Intake Visit Reasons: ED FU-right thumb extensor tendon laceration Intake Note: Pierre 20 yr old right hand dominant male who works at [employer], presents today for his ED follow up visit for his right thumb extensor tendon laceration from [facility] 04/02/25. He presents to ED with concerns of laceration to his right thumb. Patient states he punched a mirror and lacerated his right thumb. States he was splinted and received sutures. Today he is limited ROM with his thumb. Denies numbness or tinglin in fingers. Accompanied by: Grand Parent Allergies No Known Allergies Allergy (Verified 04/03/25 09:57) HPI HPI ED FU-right thumb extensor tendon laceration: Details: Pierre 20 yr old right hand dominant male who works at [employer], presents today for his ED follow up visit for his right thumb extensor tendon laceration from [facility] 04/02/25. He presents to ED with concerns of laceration to his right thumb. Patient states he punched a mirror and lacerated his right thumb. Was previously seen in the ED , where he was placed into a splint and the laceration was loosely sutured after copious irrigation. Patient was also placed on antibiotics at that time. Today, the patient denies any numbness in the right thumb, but does report he is unable to actively extend the right thumb. Patient states he was told that he may have cut 1 of the tendons. No other acute complaints or concerns at this time. [facility] Social History (Updated 04/03/25 @ 09:59 by PASQUALE Sanders) Patient Tobacco Use Status: Never used Tobacco Current occupational status: employed Current occupation: [employer]. Physical Exam Vital Signs: BMI result Body Mass Index 22.3 Extrem Other: Patient is alert, oriented, and in no acute distress. Neuro: Normal sensation of the tips of all digits of the right hand at this time Vascular: Cap refill brisk Pain: Minimal tenderness to palpation about laceration on dorsal aspect of right thumb ROM: Patient is unable to actively extend the IP joint of the right thumb Patient is able to flex the IP joint of the right thumb Skin: There was an approximately 4 cm in length laceration noted over the dorsal aspect of the right thumb just proximal to the IP joint Loosely approximated with sutures General: No ecchymosis, erythema, or evidence of infection. Psych: Appears grossly normal Affect normal Attitude cooperative Assessment & Plan Assessment & Plan (1) Laceration of extensor muscle, fascia and tendon of right thumb at wrist and hand level, initial encounter: Code(s): S66.221A - Laceration of extensor muscle, fascia and tendon of right thumb at wrist and hand level, initial encounter Category: Medical Plan 1. Extensor tendon laceration of right thumb Date of injury 04/02/2025 I educated the patient about the condition. I discussed both operative and nonoperative treatment options. The patient would like to proceed with surgery. The risks and benefits of operative treatment were discussed with the patient and the patient wishes to proceed with surgery. These risks include, but are not limited to, risk of damage to blood vessels, nerves, tendons, infection, recurrence, incomplete relief of preoperative symptoms, persistent pain, possible need for further surgery, and the risks associated with regional blocks and/or anesthesia. Plan is to take the patient to the operating room at some point in the next few weeks for the following procedures: 1. Right thumb extensor tendon repair under general anesthesia All of the preoperative paperwork including the consent was discussed today. All of the patient's questions were answered in the clinic today. The patient understands that they will be in contact with our medical or surgical instrument maker to discuss scheduling their procedure. Patient denies diabetes, blood thinners, asthma, heart issues, lung issues, kidney issues, or current smoking. Medications: Discontinued amoxicillin-pot clavulanate 875-125 mg Discontinued Reason: Patient Completed Course 1 tab PO TID 7 days 21 tabs 0RF amoxicillin-pot clavulanate 875-125 mg Discontinued Reason: Patient Completed Course 1 tab PO BID 16 tabs 0RF oxycodone Partial Fill upon patient request. Discontinued Reason: Patient Completed Course 5 mg PO Q8H PRN 9 tabs 0RF pain Coding Level of Care Code New Pt Level 4 (70535) Diagnoses Laceration of extensor muscle, fascia and tendon of right thumb at wrist and hand level, initial encounter S66.221A
== END 2025-04-03 10:28 | disposition home or self-care (01) ==
LOC: HO.HOS 09:49
DX: S66.221A Laceration of extensor muscle, fascia and tendon of right thumb at wrist and hand level, initial encounter (principal)
CPT/HCPCS: 99204

== ENCOUNTER → 2025-04-03 09:49 | Outpatient (BNVA) | payer MEDICAID, SELFPAY | DX: S66.221A Laceration of extensor muscle, fascia and tendon of right thumb at wrist and hand level, initial encounter (principal); W26.8XXA Contact with other sharp object(s), not elsewhere classified, initial encounter; Y93.9 Activity, unspecified; Y92.89 Other specified places as the place of occurrence of the external cause; Y99.0 Civilian activity done for income or pay | CPT/HCPCS: 99212 ==

== ENCOUNTER 2025-04-06 11:42 | Day surgery (SDC) | payer MEDICAID, SELFPAY ==
--- NOTE | 2025-04-03 11:13 | HO.ANESPROP2 ---
Documented by User: Annemarie Arnold NP 04/03/25 11:14 HPI - Anesthesia Eval Consult details Narrative: 20 yr old male for right Thumb Extensor Tendon Repair [facility] Social History Social History Are you a primary primary care md to a significant other at home: No Do you presently have visiting nurse or other home services: No Patient Tobacco Use Status: Never used Tobacco Second Hand Smoke Exposure: No Use of substances other than those prescribed or required for medical reasons: Yes Substance Use Frequency: Daily Have you been hit, kicked, punched, or otherwise hurt by someone within the past year? If so, by whom?: No Are you DNR?: No Advance Directives: No Advance Directives Information Provided: Yes Advance Directives on File: No Current occupational status: employed Current occupation: [employer]. Meds Allergies Allergy/AdvReac Type Severity Reaction Status Date / Time No Known Allergies Allergy Verified 04/03/25 09:57 Documented by User: Bailey Hernandez MD 04/06/25 13:33 [facility] Family History Family history of problems with anesthesia: No Surgical History History of Problems with Anesthesia: No Social History Social History Are you a primary primary care md to a significant other at home: No Do you presently have visiting nurse or other home services: No Patient Tobacco Use Status: Never used Tobacco Second Hand Smoke Exposure: No Use of substances other than those prescribed or required for medical reasons: Yes Substance Use Frequency: Daily Have you been hit, kicked, punched, or otherwise hurt by someone within the past year? If so, by whom?: No Are you DNR?: No Advance Directives: No Advance Directives Information Provided: Yes Advance Directives on File: No Current occupational status: employed Current occupation: [employer]. Meds Allergies Allergy/AdvReac Type Severity Reaction Status Date / Time No Known Allergies Allergy Verified 04/03/25 09:57 Exam Airway Mallampati Class: II TM Dist: >3cm Neck ROM: Full Heart: rrr Lungs: cta Assessment and Plan Assessment Anesthesia Assessment: Anesthesia Plan Discussed and Chart Reviewed Final Anesthetic Review Family History of Problems with Anesthesia: No History of Problems with Anesthesia: No NPO: Yes ASA Class: II (heavy pot use) Final Preanesthetic Review: No Changes in Pt Med Stat, Meds/Allgs Chart Reviewed, Consent Obtained/Reviewed and Anes Risks/Benef Reviewed Patient Risk: Intermediate Procedure Risk: Low Anesthetic Plan Anesthetic Plan: GA and Agree w/ Assess. and Plan Disposition: Standard PACU
[2025-04-06] VITALS (7 sets, daily range): BP systolic 103–125; BP diastolic 57–80; PULSE 53–65; RESP 12–16; TEMP 36.5–36.9; O2SAT 97–100; BMI 20.5
[2025-04-06] MEDS: Lactated Ringers 1,000 ML 100 ML IVCONT (12:39)
--- NOTE | 2025-04-06 13:48 | PC.NURSE ---
No 24hr update documented on patient. Dr Kelley notified via [employer]. Jaci Christiansen, RESTAURANT LINE SERVER aware. patient transported via stretcher to OR without documentation done.
--- NOTE | 2025-04-06 13:50 | P.OP_ITS ---
Operative Note Operative Note Date of Service: 04/06/25 Narrative: Operative Note Narrative: Preop diagnosis: 1. Right thumb dorsal laceration with extensor tendon laceration Postop diagnosis: Same Procedure: 1. Right thumb repair of extensor pollicis longus tendon 2. I&D and closure of right thumb wound 2.5 cm Surgeon: Serina Kelley MD Employment Programs Analyst: None Anesthesia: General Anesthesia Findings: Extensor pollicis longus tendon laceration with retraction of EPL tendon to MCP joint. Scoring of the dorsal cortex of the proximal phalanx, but laceration did not appear to enter the IP joint. Implants: None Tourniquet time: 18 minutes EBL: 5.0 ml Specimen: None Drains: None Complications: None Disposition: Brought to the recovery room in stable condition Plan: Follow-up in 10-14 days for wound check, suture removal and placement in a shor t-arm thumb spica cast until 6 weeks postop Early OT following discontinuance of thumb spica cast in 6 weeks. Indications: The patient is a 20 year old young man with a right thumb dorsal laceration with laceration of the extensor tendons after punching glass . The risks and benefits of operative treatment, including but not limited to risk of damage to blood vessels, nerves, tendons, infection, recurrence, persistent pain or numbness, incomplete resolution of preoperative symptoms, or need for further surgery were discussed with the patient and they wished to proceed with surgery. Procedure: Once consent was obtained patient was brought back to the operating suite and placed in the operating table in a supine position. . Perioperative antibiotics and anesthesia was administered by the anesthesia team. A tourniquet was applied to the proximal aspect of the right upper extremity and the limb was prepped and draped in a standard surgical fashion. The limb was elevated exsanguinated with Esmarch bandage and the tourniquet inflated to 250 mm of mercury for a total tourniquet time of 18 minutes. The patient had an approximately 2.5 cm oblique laceration over the dorsal aspect of the right thumb proximal phalanx just proximal to the IP joint. Sutures were removed and then I and D of the wound was performed using iris and tenotomy scissors to excise some devitalized tissue. The glass that lacerated the EPL tendon also scored the dorsal aspect of the proximal phalanx proximal to the IP joint. The IP joint does not appear to have been violated. The proximal end of the EPL tendon retracted back to the MCP joint. I extended the radial aspect of the incision proximally to just distal to the MCP joint. This was done using a 15. Blade through the skin to the subcutaneous tissues. I then dissected down to the level of the EPL tendon sheath using tenotomy scissors. I was then able to grasp the EPL tendon and advanced it distally. I placed a 25 gauge needle proximally in the tendon to secure it in place. The wound was again copiously irrigated with normal saline. I then repaired the extensor pollicis longus tendon using 4 core suture technique and 4-0 FiberWire suture. At this point the tourniquet was deflated and hemostasis obtained with a brief period of local pressure . The wound was copiously irrigated with normal saline. The skin edges were reapproximated with 5-0 nylon suture. The wound was infiltrated with some 1% lidocaine with epinephrine for postop pain control and a sterile dressing was applied. The patient was placed in a short-arm thumb spica splint holding the thumb in extension. The patient appears to have tolerated the procedure well and with no complications. All digits were well vascularized conclusion of the case.
--- NOTE | 2025-04-06 13:50 | MHC.SHP ---
Pre-Procedural Eval Section A - 24 Hr Update-Section A only Date of Service: 04/06/25 The patient is an INPATIENT: No Changes since office visit: No Cold of Flu in the past 2 weeks, No New Medical Problems, No Changes in Medication and No Patient answered all questions The patient has been examined within 24 hours of the surgical procedure. The History & Physical has been completed within 30 days and I have reviewed it.: Yes Section B - Complete if H&P > 30 days Chief Complaint: Laceration of extensor muscle, fascia and tendon Allergies: Allergies Allergy/AdvReac Type Severity Reaction Status Date / Time No Known Allergies Allergy Verified 04/03/25 09:57 Plan I have reviewed the history and physical and performed a pertinent physical examination on my patient. No changes have occurred unless specified. Time Spent With Patient Time: Total time managing care of this patient today ____ minutes.
== END 2025-04-06 16:14 | disposition home or self-care (01) ==
PROVIDERS: Visit Provider Orthopaedic Surgery
PROC: (CPT 26410; principal; 2025-04-06 13:30)
DX: S66.221A Laceration of extensor muscle, fascia and tendon of right thumb at wrist and hand level, initial encounter (principal); S61.011A Laceration without foreign body of right thumb without damage to nail, initial encounter; W25.XXXA Contact with sharp glass, initial encounter; Y93.89 Activity, other specified; Y92.9 Unspecified place or not applicable; Y99.9 Unspecified external cause status
CPT/HCPCS: 26410; 12001; J0131; J0690; J1100; J2003; J2405; J2704; J3010

== ENCOUNTER → 2025-04-06 11:42 | Outpatient (BNV) | payer MEDICAID, SELFPAY | PROVIDERS: Visit Provider Orthopaedic Surgery | DX: S66.221A Laceration of extensor muscle, fascia and tendon of right thumb at wrist and hand level, initial encounter (principal) | CPT/HCPCS: 26418 ==

== ENCOUNTER 2025-04-20 09:51 | Outpatient (AMB) | payer MEDICAID, SELFPAY ==
--- NOTE | 2025-04-20 10:03 | A.OFFVIS_ITS ---
Intake Visit Reasons: PO-Rt Thumb Extensor Tendon Repair 04/06/25 Intake Note: Pierre is a 20 year old right hand dominant male who presents today for a Post- Operative Visit status post Right Thumb Extensor Tendon Repair, DOS: 04/06/[address] Kelley, DOI 04/02/25. At today's visit he states that the right thumb no longer has numbness or tingling. He reports that the right thumb still has a stinging/burning sensation . Allergies No Known Allergies Allergy (Verified 04/03/25 09:57) HPI HPI PO-Rt Thumb Extensor Tendon Repair 04/06/25: Details: Pierre is a 20 year old right hand dominant male who presents today for a Post- Operative Visit status post Right Thumb Extensor Tendon Repair, DOS: 04/06/[address] Kelley, DOI 04/02/25. At today's visit he states that the right thumb no longer has numbness or tingling. He reports that the right thumb still has a stinging/burning sensation , but overall his pain has improved significantly since surgery. No other acute complaints or concerns at this time. [facility] Social History Are you a primary healthcare recruiter to a significant other at home: No Do you presently have visiting nurse or other home services: No Patient Tobacco Use Status: Never used Tobacco Second Hand Smoke Exposure: No Current occupational status: employed Current occupation: [employer] hand. Review of Systems Const All systems reviewed & are unremarkable except as noted in HPI and below Physical Exam Extrem Other: Patient is alert, oriented, and in no acute distress. Neuro: Normal sensation of the tips of all digits of the right hand at this time Vascular: Cap refill brisk Pain: Minimal tenderness to palpation about laceration on dorsal aspect of right thumb Skin: Well approximated and well healing incision site noted on dorsal aspect of right thumb Well approximated and well healing laceration site on dorsal aspect of the right ring finger General: No ecchymosis, erythema, or evidence of infection. Psych: Appears grossly normal Affect normal Attitude cooperative Office Procedures Casting/Splints 06356-Soml/Wrist Cast Application Procedure code (CPT) selection complete Assessment & Plan Assessment & Plan (1) Laceration of extensor muscle, fascia and tendon of right thumb at wrist and hand level, initial encounter: Code(s): S66.221A - Laceration of extensor muscle, fascia and tendon of right thumb at wrist and hand level, initial encounter Category: Medical Plan 1. Status post extensor tendon repair of right thumb DOS 04/06/2025 Patient appears to be recovering well from his surgery Patient was educated about the typical recovery course Sutures removed without issue Patient was placed into a thumb spica cast at this time Patient was educated on proper cast care and precautions 2 lb weight limit in right hand reinforced Follow-up in 4 weeks for reassessment, anticipate cast removal at that time, sooner with any acute concerns Coding Level of Care Code Global (01018) Diagnoses Laceration of extensor muscle, fascia and tendon of right thumb at wrist and hand level, initial encounter S66.221A CPT Codes Casting - CPT: 81111-Ttcg/Wrist Cast Application ([id number])
== END 2025-04-20 12:03 | disposition home or self-care (01) ==
LOC: HO.HOS 09:52
DX: S66.221A Laceration of extensor muscle, fascia and tendon of right thumb at wrist and hand level, initial encounter (principal)
CPT/HCPCS: 29085; 99024

== ENCOUNTER → 2025-04-20 09:51 | Outpatient (BNVA) | payer MEDICAID, SELFPAY | DX: S66.221D Laceration of extensor muscle, fascia and tendon of right thumb at wrist and hand level, subsequent encounter (principal); X58.XXXD Exposure to other specified factors, subsequent encounter | CPT/HCPCS: 29085; 99212 ==